=== PATIENT | female | born 1940 | race Caucasian/White ===

== ENCOUNTER → 2021-01-13 16:24 | Outpatient (CLI) | payer MEDICARE, OTHER, SELFPAY ==
--- NOTE | ~2021-01-13 | XR_ITS ---
XR thoracic spine 2V DATE: 01/13/2021 18:58 INDICATION: Back pain TECHNIQUE: AP, lateral, swimmer views COMPARISON: 01/13/2021 lumbar spine FINDINGS: There is diffuse osteopenia. There is moderately prominent levoscoliosis of the thoracic spine. There is prominent loss of height, anterior wedging of T12 consistent with fracture of undetermined a ge, likely compression fracture. Degenerative spurring of the thoracic spine. IMPRESSION: T12 fracture of undetermined age Diffuse osteopenia Levoscoliosis Degenerative spurring Reviewed, dictated and finalized at location A.
--- NOTE | ~2021-01-13 | XR_ITS ---
XR lumbar spine 2-3V DATE: 01/13/2021 18:58 INDICATION: Back pain TECHNIQUE: Standing AP, lateral and coned lateral lumbosacral views COMPARISON: 09/29/2007 lumbar spine FINDINGS: There is diffuse osteopenia. There is chronic prominent compression fracture deformity of T12, present on 09/29/2007. The lumbar pedicles are intact. No recent fracture is evident. No spondylolisthesis. There is moderate to moderately severe degenerative disc disease of the lumbar spine from L1 to throu gh L2-3 and L3-4. Status post right total hip arthroplasty. Osteoarthritis and chondrocalcinosis at the left hip. Degenerative change at the sacroiliac joints. IMPRESSION: Chronic T12 fracture deformity Osteopenia Moderate to moderately severe degenerative disc disease Right total hip arthroplasty Reviewed, dictated and finalized at location A.
== END ==
PROVIDERS: PCP Family Medicine; Visit Provider Physician Assistant
DX: M54.9 Dorsalgia, unspecified (principal); M85.88 Other specified disorders of bone density and structure, other site
CPT/HCPCS: 72070; 72100